=== PATIENT | male | born 1995 | race Caucasian/White ===

== ENCOUNTER 2024-08-09 22:57 | Emergency (ER) | payer OTHER, SELFPAY ==
[2024-08-09 23:02] VITALS: BP 145/94
--- NOTE | 2024-08-09 23:52 | ED.SKININJ ---
HPI-Injury
General
Chief Complaint: Bite
Source: patient
Time Seen by Provider: 08/09/24 23:42
History of Present Illness-Injury
Initial Injury comments:
Note:
CHIEF COMPLAINT(S)
Dog bite to the nose.
HISTORY OF PRESENT ILLNESS
The patient, a 29-year-old male, presents with injuries sustained from a dog bite. The incident occurred while the patient was interacting with a friends dog. The patient describes two superficial abrasions on the left side of the nose, noting a
small V-shaped flap. There is no active bleeding, and the patient reports washing the wounds with alcohol. The patient denies any other injuries and states that the area feels fine. The main concern is infection, as noted by the physician, due to
the bacterial content in a dogs mouth. The plan includes gluing the V-shaped flap to promote better healing and administering antibiotics to prevent infection. The patient has not had a recent tetanus immunization, and a booster will be administered.
PHYSICAL EXAM
- Face: Two superficial abrasions on the left side of the nose with no active bleeding. A small V-shaped flap noted.
- Patient is alert and awake, in no respiratory distress.
- Normal neurologic assessment with no focal deficits.
- Nursing notes reviewed and vital signs reviewed.
PLAN
1. Administer tetanus booster shot.
2. Apply glue to secure the V-shaped flap for optimal healing.
3. Start antibiotics to prevent infection.
4. Instruct the patient to keep the wound clean and dry.
5. Advise the patient not to apply any oil-based products, such as Vaseline, to the area until it is healed.
6. Observe for signs of infection, including redness and swelling.
7. Provide a prescription for additional antibiotics.
DIFFERENTIAL DIAGNOSIS
The Differential Diagnosis includes, in no particular order and is not limited to:
1. Superficial dog bite wound
2. Infection of the dog bite
3. Allergic reaction to dog saliva
4. Cellulitis
5. Contusion
6. Laceration
7. Abrasion
8. Skin abscess
9. Foreign body in laceration
10. Soft tissue injury
CARE-UPDATE
08/10/24 - 00:21
Left nasal laceration repaired with dermabond. No new issues or concerns reported by the patient during reassessment. Patient expresses no questions regarding current treatment or discharge plan. Prescription details confirmed with the pharmacy.
Disposition:
SUMMARY OF ENCOUNTER
The 29-year-old male patient presented to the emergency department following a superficial dog bite to the nose. The wounds included two superficial abrasions with a small V-shaped skin flap on the left side of the nose. The primary concern was
infection risk due to the nature of dog bites and the bacterial content in the dogs mouth. The wound was managed with derma glue (Dermabond) for closure, a tetanus booster was administered, and antibiotics were provided to prevent infection. Given
the superficial and non-critical nature of the wound, the patient was deemed stable for outpatient follow-up.
DISPOSITION
Discharge.
ASSESSMENT
The patient sustained superficial abrasions from a dog bite. There was concern for infection due to the exposure to the dogs oral bacteria, necessitating precautionary measures.
PLAN
1. Administer tetanus booster shot.
2. Apply glue (Dermabond) to the V-shaped flap on the nose for optimal healing.
3. Prescribe antibiotics to prevent infection.
4. Instruct the patient to keep the wound clean and dry and not to apply oil-based products to the area until healed.
5. Advise the patient to observe for signs of infection, including redness, swelling, and discharge.
PROCEDURES
Application of derma glue (Dermabond) to the nasal wound.
MEDICATION RECONCILIATION
- Tetanus booster administered.
- Antibiotics provided.
MEDICAL DECISION MAKING
Number and Complexity of Problems Addressed: The patients presentation included concerns related to the superficial wound from the dog bite and the potential for infection. The differential diagnosis considered the risk of bacterial infection,
possible cellulitis, and ensuring proper wound healing.
Data: The decision to apply Dermabond, administer a tetanus booster, and prescribe antibiotics was based on the evaluation of the wounds appearance and the risk associated with dog bites.
Risk: Consideration for potential hospitalization was not required due to the outpatient viability. Prescription drug management with antibiotics was initiated to reduce the infection risk from the dog bite. The patient was counseled on wound care
and monitoring for infection symptoms.
Past History
Past History
ED Past Medical History: Psychiatric (ADHD)
ED Past Surgical History: None
Social History
Tobacco: Non-smoker
Alcohol: None
Drug: Marijuana
Personal: Single
Living: with family
Employment: Student
Family History
Family History: Other (Noncontributory)
Phy Exam
Physical Exam
Physical Exam:
.
Course
Orders/Labs/Results
Orders:
Orders
08/09/24 23:50
Amoxicillin 875 mg/Clav 125 mg [Augmentin 875 mg/125 mg] 1 tablet PO NOW STA
Tetanus/Diphth/Acelpertussis [Adacel] 0.5 ml IM .ONCE ONE
Vital Signs
Initial and Last Documented VS:
Initial Vital Signs
Temp Pulse Resp BP Pulse Ox
97.9 F 61 20 145/94 97
08/09/24 23:02 08/09/24 23:02 08/09/24 23:02 08/09/24 23:02 08/09/24 23:02
Last Documented Vital Signs
Temp Pulse Resp BP Pulse Ox
97.9 F 61 20 145/94 98
08/09/24 23:02 08/09/24 23:02 08/09/24 23:02 08/09/24 23:02 08/09/24 23:02
*Pulse Oximetry
Patient hypoxic: no
*Critical Care Note
Total Time (30-74mins, 75-104mins- exclusive of procedures): Not Applicable
ED Attending Note
-
Portions of this chart may have been created with voice recognition software.� Occasional wrong word or��sound alike� substitutions may have occurred due to the inherent limitations of voice recognition software.
Discharge Plan
Departure
Patient Disposition: Home (Routine Discharge)
Date of Disposition: 08/09/24
Time of Disposition: 23:58
Patient with high blood pressure during this ER visit?: Yes
Discharge Problem:
Dog bite
Instructions: Animal Bites (DC), BLOOD PRESSURE
Prescriptions:
New
amoxicillin-pot clavulanate 875-125 mg tablet
1 tab PO BID Qty: 14 0RF
No Action
multivitamin with folic acid [Tab-A-Rachelle] 1 TABLET tablet
1 tab PO DAILY
Concerta
45 mg PO DAILY
clindamycin HCl 300 MG capsule
300 mg PO QID Qty: 28 0RF
ibuprofen 600 MG tablet
600 mg PO Q6HPRN PRN (Reason: pain. take with food.) Qty: 30 0RF
Activity Restrictions/Additional Instructions:
Return immediately for redness, drainage from the wound, swelling, pain or any other concerns
Interventions
Interventions:
*Risk Screen - Suicide Last Done: 08/09/24 23:02
*General Assessment Last Done: 08/09/24 23:02
*Neglect/Abuse Screening Last Done: 08/09/24 23:02
*ED- Fall Risk Assessment Last Done: 08/09/24 23:02
*ED COVID-19 Vaccine History Last Done: 08/09/24 23:02
*Nursing Disposition Last Done: 08/10/24 00:32
ED-Skin Assessment Last Done: 08/10/24 00:00
Discharge Date and Time
Discharge Date/Time: 08/10/24 00:33
Print Language: SLOVAK
[2024-08-09] MEDS: ADACEL 0.5 ML IM (23:58)
[2024-08-09] MEDS: AUGMENTIN 875 MG/125 MG 1 TABLET PO (23:59)
== END 2024-08-10 00:33 | disposition home or self-care (01) ==
LOC: EMR 22:57
PROVIDERS: EMERGENCY PHYSICIAN Emergency Medicine
DX: S00.31XA Abrasion of nose, initial encounter (principal); W54.0XXA Bitten by dog, initial encounter; Z23 Encounter for immunization; F90.9 Attention-deficit hyperactivity disorder, unspecified type
CPT/HCPCS: 99282; 12011; 90471; 90715